=== PATIENT | male | born 1945 | race Caucasian/White ===

== ENCOUNTER → 2020-09-29 14:32 | Outpatient (POV) | payer MEDICARE, SELFPAY ==
[2020-09-29 15:06] VITALS: BP 145/86; PULSE 78; RESP 18; O2SAT 93; BMI 28.4
--- NOTE | 2020-09-29 15:45 | [facility].PMCON ---
Assessment and Plan (1) Degenerative joint disease (DJD) of lumbar spine Status: Chronic Category: Medical Code(s): M47.816 - Spondylosis without myelopathy or radiculopathy, lumbar region (2) Lumbar radiculopathy Status: Chronic Category: Medical Code(s): M54.16 - Radiculopathy, lumbar region (3) Degenerative joint disease of cervical spine Status: Chronic Category: Medical Code(s): M47.812 - Spondylosis without myelopathy or radiculopathy, cervical region (4) Cervical radiculopathy Status: Chronic Category: Medical Code(s): M54.12 - Radiculopathy, cervical region - Assessment and plan all Dx Assessment and Plan for all problems:: More than 45 minutes was spent with the patient today regarding plan of care. Patient and niece were advised that we cannot manage the intrathecal pump with oral opiates. If the patient is willing to discontinue oral opiates, we will be happy to manage the intrathecal pain pump. The patient does not feel the pump is working adequately at this time with possible complications due to flipping of the pump. We did discuss change out of the device. He does understand he will need to be weaned from his oral medications before proceeding with implant of a new device for management of his current device. The patient and his family member were given other clinic names that may be able to help him with his oral medication and intrathecal therapy if he does not desire to proceed with intrathecal therapy only. If the patient does decide to proceed with intrathecal therapy, and without oral opiates, we will schedule him to see Dr. Mendoza or Dr. Flores at the next visit to discuss options of devices. Patient does report that he has had his current pump for 3 to 4 years. He says that this is his third intrathecal pump. The patient would like a 1 month follow-up to discuss the plan of care with Dr. Mendoza or Dr. Flores before proceeding with any further treatment in our clinic. HPI - Data of Consult Patient: new to practice Consult date: 09/29/20 Requesting Physician: Wilma Montague APRN Primary Care Provider: Referral Provider, MD - Consult Narrative Reason for consult: Chronic low back pain History of present illness: Mr. Martinez is a 75 year old male who presents today for consultation for intrathecal pump management. Patient was referred to us by Su Nowak APRN. The patient has chronic low back pain with lumbar radiculopathy symptoms as well as chronic neck pain with cervical radicular symptoms. Patient is managed with intrathecal therapy with fentanyl 200 mcg a day and bupivacaine 2 mg/day along with oxycodone 10 mg 1 tablet p.o. every 8 hours. Patient says that he was informed by his pain management provider that they would no longer be able to feel his intrathecal pump and would need to seek treatment elsewhere. Patient was referred to our clinic. The patient was informed prior to the visit that we would not be able to provide him with oral medications along with intrathecal therapy. He is here today to discuss options. Per Su Nowak APRN note, the patient, at last visit, had complications with his pump. The patient has a pump that is flipping. There was some difficulty with filling the intrathecal pump The provider did feel the patient would benefit from a change out of the device or revision of the device. As result the patient was referred to us. Patient is unsure that he wants to change the device. He expected to come to us today for medication refill and for establishment of care to manage his intrathecal pump. The patient, niece, and I had a very long discussion concerning options in our clinic. Patient's pain is an 8 or 9 out of 10 without oral medications. The niece has reported that patient is now out of oral medication and does need a refill on the medicines. Patient's pain is in his low back with radiation into lower extremities as well as the neck and upper extr
== END ==
PROVIDERS: Visit Provider Clinical Nurse Specialist Family Health
DX: M47.896 Other spondylosis, lumbar region (principal); M47.892 Other spondylosis, cervical region; M54.16 Radiculopathy, lumbar region; M54.12 Radiculopathy, cervical region
CPT/HCPCS: 99202; G0463

== ENCOUNTER → 2020-10-28 10:59 | Outpatient (POV) | payer MEDICARE, SELFPAY ==
[2020-10-28 11:53] VITALS: BP 120/75; PULSE 81; RESP 20; TEMP 36.1; O2SAT 95; BMI 28.3
--- NOTE | 2020-10-28 12:01 | [facility].PMPROC ---
- Procedure Date: 10/28/20 Time: 12:01 Anesthesiologist:: Lukas Mendoza MD Complications:: None Pre-procedure Diagnosis:: Degenerative disc disease of lumbar spine with lumbar radiculopathy symptoms severe kyphosis and degenerative disc disease of the cervical spine with radiculopathy symptoms Post-procedure Diagnosis:: Same Indications for Procedure:: This patient is a pleasant 75-year-old white male who we have taken over for management of his intrathecal fentanyl pain pump. He has been out of oxycodone for over a month. I did tell him that we will not do oxycodone on top of his intrathecal therapy. We did interrogate his pump and he does have a 40 mL intrathecal fentanyl pain pump 2000 mcg/mL plus bupivacaine 15 mg/mL currently running at 300 mcg/day. Today we will make adjustments since he is having some increasing pain to 350 mcg/day. He is due for change of his intrathecal pain pump. We will set him up for change out in November. Procedure Details:: Adjustment of intrathecal fentanyl pain pump Informed consent was obtained risk and benefits of the procedure were explained to the patient. Patient was taken the procedure room. The pump was interrogated. Intrathecal fentanyl/bupivacaine pain pump was increased to 350 mcg/day. Patient tolerated the procedure well with no complications. Plan and Disposition:: We will follow-up with this patient in November. He needs to be refilled on her before December 10, 2020. He does have a 40 mL pump. We will plan on changing his pump out to a 20 mL flowonix pump.
== END ==
PROVIDERS: PCP Nurse Practitioner Family; Visit Provider Anesthesiology
DX: M51.16 Intervertebral disc disorders with radiculopathy, lumbar region (principal); M50.10 Cervical disc disorder with radiculopathy, unspecified cervical region; M40.209 Unspecified kyphosis, site unspecified
CPT/HCPCS: 62368